=== PATIENT | male | born 1970 | race Caucasian/White ===

== ENCOUNTER 2018-01-24 12:05 | Emergency (ER) | payer OTHER ==
[~2018-01-24] VITALS: Ht 185.4 cm; Wt 127.0 kg
[2018-01-24] MEDS ORDERED: OMEPRAZOLE 20 M20 M1 PO (12:26)
[2018-01-24] MEDS ORDERED: NORCO 5-325 TA1 EACH PO (13:31)
[2018-01-24 13:56] VITALS: BP 140/80
== END 2018-01-24 13:57 | disposition home or self-care (01) ==
LOC: M.ERS 12:05
DX: M25.562 Pain in left knee (principal); K21.9 Gastro-esophageal reflux disease without esophagitis; Z90.49 Acquired absence of other specified parts of digestive tract